=== PATIENT | male | born 1940 | race Caucasian/White ===

== ENCOUNTER → 2024-06-22 07:39 | Outpatient (REF) | payer MEDICARE, OTHER, SELFPAY ==
[2024-06-22 08:24] LABS: % Basophils 0.6 % (0-2); % Eosinophils 1.2 % (0-6); % Immature Granulocytes 0.2 % (0-0.5); % Lymphocytes 19.9 % (20.5-51.1); % Monocytes 9.2 % (1.7-9.3); % Neutrophils 68.9 % (42.2-75.2); Absolute Eosinophils 0.1 10^3/uL (0-0.7); Absolute Monocytes 0.5 10^3/uL (0.1-0.6); Absolute Neutrophils 3.5 10^3/uL (1.4-6.5); Hematocrit 37.9 % (39.0-52.0); Hemoglobin 13.8 g/dL (13.0-18.0); Mean Corp Hgb Conc. 36.4 g/dL (33.0-37.0); Mean Corpuscular Hgb 31.6 pg (27.0-31.0); Mean Corpuscular Volume 86.7 fL (80.0-94.0); Mean Platelet Volume 11.5 fL (7.4-10.4); Nucleated Red Blood Cells % 0 % (-); Platelet Count 158 10^3/uL (130-400); Red Blood Cell Count 4.37 10^6/uL (4.70-6.10); Red Cell Dist. Width 12.9 % (11.5-14.5); White Blood Cell Count 5.1 10^3/uL (4.8-10.8)
[2024-06-22 09:28] LABS: ALT (SGPT) 16 U/L (0-50); AST (SGOT) 24 U/L (17-59); Albumin 4.3 g/dl (3.5-5.0); Alkaline Phosphatase 57 U/L (38-126); Blood Urea Nitrogen 17 mg/dl (9-20); Calcium 9.2 mg/dl (8.4-10.2); Carbon Dioxide 24 mmol/L (22-30); Chloride 105 mmol/L (98-107); Glucose 93 mg/dl (70-99); HDL Cholesterol 50 mg/dl; LDL Cholesterol, Calculated 75 mg/dl; Potassium 4.4 mmol/L (3.5-5.1); Sodium 142 mmol/L (135-145); Total Cholesterol 139 mg/dl (50-199); Total Protein 6.8 g/dl (6.3-8.2); Triglyceride 70 mg/dl (10-149); Very Low Density Lipoprotein 14 mg/dl (0-30); eGFR > 60.00
== END ==
LOC: RAD 07:39
PROVIDERS: ATTENDING PHYSICIAN Internal Medicine
DX: R41.82 Altered mental status, unspecified (principal); F03.90 Unspecified dementia, unspecified severity, without behavioral disturbance, psychotic disturbance, mood disturbance, and anxiety; G51.0 Bell's palsy; C44.90 Unspecified malignant neoplasm of skin, unspecified; R97.20 Elevated prostate specific antigen [PSA]; I63.9 Cerebral infarction, unspecified
CPT/HCPCS: 36415; 80053; 80061; 84153; 84154; 85025

== ENCOUNTER → 2024-09-28 08:38 | Outpatient (REF) | payer MEDICARE, OTHER, SELFPAY | LOC: REG 08:38 | PROVIDERS: ATTENDING PHYSICIAN Otolaryngology; FAMILY PHYSICIAN Internal Medicine | DX: K11.8 Other diseases of salivary glands (principal); C07 Malignant neoplasm of parotid gland | CPT/HCPCS: 36415; 82565 ==

== ENCOUNTER → 2024-10-09 09:02 | Outpatient (REF) | payer MEDICARE, OTHER, SELFPAY | LOC: RAD 09:02 | PROVIDERS: ATTENDING PHYSICIAN Otolaryngology; FAMILY PHYSICIAN Internal Medicine | DX: K11.8 Other diseases of salivary glands (principal); C07 Malignant neoplasm of parotid gland | CPT/HCPCS: 70470; 70491; Q9967 ==

== ENCOUNTER 2025-08-20 22:59 | Emergency (ER) | payer MEDICARE, OTHER, SELFPAY ==
[2025-08-20 23:18] LABS: Hematocrit 36.7 % (39.0-52.0); Hemoglobin 12.1 g/dL (13.0-18.0); Mean Corp Hgb Conc. 33.0 g/dL (33.0-37.0); Mean Corpuscular Volume 83.4 fL (80.0-94.0); Nucleated Red Blood Cells % 0 % (-); Platelet Count 427 10^3/uL (130-400); Red Cell Dist. Width 14.5 % (11.5-14.5)
[2025-08-20 23:43] LABS: ALT (SGPT) 17 U/L (0-50); AST (SGOT) 25 U/L (17-59); Albumin 3.9 g/dl (3.5-5.0); Alkaline Phosphatase 79 U/L (38-126); Blood Urea Nitrogen 58 mg/dl (9-20); Calcium 9.3 mg/dl (8.4-10.2); Carbon Dioxide 26 mmol/L (22-30); Chloride 104 mmol/L (98-107); Glucose 120 mg/dl (70-99); Potassium 4.3 mmol/L (3.5-5.1); Sodium 137 mmol/L (135-145); Total Protein 7.2 g/dl (6.3-8.2); eGFR > 60.00
--- NOTE | 2025-08-20 23:50 | ED.GENMED ---
History of Present Illness
General
Chief Complaint: Change in Mental Status
Source: patient and other (Power of tax associate attorney, Tony Bunch, over the phone at [phone])
Exam Limitations: none
Time Seen by Provider: 08/20/25 23:48
Nursing documentation reviewed up to this point in time: agreed with
History of Present Illness
History of Present Illness:
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
agitated and 'physical with her'. His aide reports that he may have also fallen and hit his head. this prompted her to call 911 and the patient was brought to the ED. The patient denies all pain and complaints to me. He arrives and appears very
comfortable. He is calm. I spoke to patient's power of tax associate attorney, Tony Broderick, over the phone who reports that the patient is on hospice and has had baseline confusion and agitation. He reports that he does not want the patient to undergo any CAT
scan, x-rays or testing. He also reports that the patient's night aide went home so no one will be in the patient's home until 9 AM in the morning. For now, he is asking that we keep patient in the ED until tomorrow morning when the next aid
arrives.
Past History
Past History
ED Past Medical History: Cancer (ENT/tonsillar) and HTN
ED Past Surgical History: Other (ENT surgery)
Social History
Tobacco: Non-smoker
Alcohol: None
Drug: None
Personal: Single
Living: alone
Employment: Other
Family History
Family History: Other
Review of Systems
Review of Systems
Allergies reviewed?: Yes
Other source history: other (Patient's power of tax associate attorney)
All Other Systems: ROS reviewed and negative except as documented in HPI and ROS
Constitutional: Reports no symptoms
EENT: Reports other (Chronic left facial droop)
Respiratory: Reports no symptoms
Cardiac: Reports no symptoms
ABD/GI: Reports no symptoms
: Reports no symptoms
Musculoskeletal: Reports no symptoms
Skin: Reports no symptoms
Neurological: Reports no symptoms
Endocrine: Reports no symptoms
Hematologic/Lymphatic: Reports no symptoms
Psychiatric: Reports no symptoms
Phy Exam
Physical Exam
Physical Exam:
General Patient has severe left facial droop but appears calm and comfortable. Atraumatic appearing face and head
Neck is supple and there is no C-spine tenderness
Cardiovascular regular rate and rhythm
Lungs are clear
Abdomen is soft
Able to move extremities with good strength without any areas of bony tenderness, diffuse swelling or deformity
Psychiatric-calm
Skin no rash
Course
Orders/Labs/Results
Orders:
Orders
08/20/25 23:08
Complete Blood Count/With Diff Urgent
Comprehensive Metabolic Panel Urgent
Abnormal Lab Results
08/20/25
23:08
WBC 12.0 H 10^3/uL
(4.8-10.8)
RBC 4.40 L 10^6/uL
(4.70-6.10)
Hgb 12.1 L g/dL
(13.0-18.0)
Hct 36.7 L %
(39.0-52.0)
Plt Count 427 H 10^3/uL
(130-400)
Abs Immat Gran (auto) 0.1 H 10^3/uL
(0-0.05)
Absolute Neuts (auto) 10.7 H 10^3/uL
(1.4-6.5)
Absolute Lymphs (auto) 0.7 L 10^3/uL
(1.2-3.4)
Immature Gran % 0.6 H %
(0-0.5)
Neutrophils % 89.0 H %
(42.2-75.2)
Lymphocytes % 5.8 L %
(20.5-51.1)
BUN 58 H mg/dl
(9-20)
Glucose 120 H mg/dl
(70-99)
08/20/25 23:08
08/20/25 23:08
Vital Signs
Initial and Last Documented VS:
Initial Vital Signs
Temp
98.9 F
08/20/25 23:02
Last Documented Vital Signs
Temp Pulse Resp BP Pulse Ox
98.9 F 73 15 128/66 99
08/20/25 23:02 08/21/25 02:00 08/21/25 02:00 08/21/25 02:00 08/20/25 23:50
MDM/Problems Addressed
Differential Diagnosis Includes:
closed head injury, dehydration, UTI
MDM/Problems Addressed:
Patient presents with acute on chronic confusion
Chronic conditions affecting care:
Cancer
Acute Exacerbation and/or Progression of Chronic Illness:
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
*Pulse Oximetry
SaO2: 99
Oxygen Mode of Delivery: Room air
Patient hypoxic: no
*EKG
Interpreted by ED Provider?: NA
*Stacker Attendant Interpretation
Rate: normal
Interpretation: normal
Rhythm: sinus
*Critical Care Note
Total Time (30-74mins, 75-104mins- exclusive of procedures): Not Applicable
Data Reviewed
Review of Other/Old Records Reveals: Radiology Studies (Recent PET scan report reviewed by me. Shows extensive osteoblastic mets)
Source: patient and other (Power of tax associate attorney over the phone)
Patient Management
Social determinants of health affecting care: Living situation and Strong social support
ED Attending Note
-
Portions of this chart may have been created with voice recognition software.� Occasional wrong word or��sound alike� substitutions may have occurred due to the inherent limitations of voice recognition software.
Discharge Plan
Departure
Patient with high blood pressure during this ER visit?: No
Condition: Fair
Covid-19: Not Applicable
Discharge Problem:
Acute on chronic confusion
Instructions: Altered Mental Status (DC)
Prescriptions:
No Action
atorvastatin [Lipitor] 40 MG tablet
40 mg PO DAILY Qty: 30 0RF
clopidogrel [Plavix] 75 MG tablet
75 mg PO DAILY Qty: 30 0RF
Referrals:
UNKNOWN - PT DOES,NOT KNOW [Family Provider]
Interventions
Interventions:
*Risk Screen - Suicide Last Done: 08/20/25 23:02
*General Assessment Last Done: 08/20/25 23:02
*Neglect/Abuse Screening Last Done: 08/20/25 23:02
*ED- Fall Risk Assessment Last Done: 08/20/25 23:02
*ED COVID-19 Vaccine History Last Done: 08/20/25 23:02
*ED Influenza Vaccine History Last Done: 08/20/25 23:02
ED- Pulmonary Assessment Last Done: 08/20/25 23:02
ED- Neurological Assessment Last Done: 08/20/25 23:02
ED- Cardiac Assessment Last Done: 08/20/25 23:02
ED Swallowing Screen Last Done: 08/21/25 01:10
Discharge Date and Time
Print Language: MAURITIAN
[2025-08-21] VITALS: BP 114/65
[2025-08-21 01:00] VITALS: BP 146/80
[2025-08-21 02:00] VITALS: BP 128/66
[2025-08-21 03:00] VITALS: BP 144/69
[2025-08-21 04:00] VITALS: BP 156/76
[2025-08-21 05:00] VITALS: BP 168/78
== END 2025-08-21 09:56 | disposition home or self-care (01) ==
LOC: EMR 22:59
PROVIDERS: Student in an Organized Health Care Education/Training Program; EMERGENCY PHYSICIAN Emergency Medicine
DX: R41.0 Disorientation, unspecified (principal); I10 Essential (primary) hypertension; C09.9 Malignant neoplasm of tonsil, unspecified; Z51.5 Encounter for palliative care
CPT/HCPCS: 99283; 80053; 85025